=== PATIENT | female | born 1970 | race Caucasian/White ===

== ENCOUNTER 2017-11-30 08:19 | Emergency (ER) | payer BC, OTHER ==
[2017-11-30 09:28] LABS: ABS Basophils 0.1 10^3/ul (0-0.2); ABS Eosinophils 0.1 10^3/ul (0-0.6); ABS Monocytes 0.8 10^3/ul (0-0.8); ABS Neutrophils 10.8 10^3/ul (1.5-7.7); ABS Nucleated RBC 0 10^3/ul; Eosinophil % 0.6 % (0-6); Hematocrit 37 % (35-47); Hemoglobin 12.5 g/dl (12.0-16.0); Lymphocyte % 14.4 % (25-47); Mean Corpuscular HGB Conc 34 g/dl (31-36); Mean Corpuscular Hemoglobin 28 pg (27-31); Mean Corpuscular Volume 84 fL (80-97); Mean Platelet Volume 7.6 um3 (7.4-10.4); Nucleated Red Blood Cells % 0; Platelet Count 225 10^3/ul (150-450); Red Blood Count 4.41 10^6/ul (4.0-5.4); Red Cell Distribution Width 14 % (10.5-15); White Blood Count 13.7 10^3/ul (3.5-10.8)
[2017-11-30 09:45] LABS: INR 0.9 (0.77-1.02)
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
[2017-11-30 09:49] LABS: EGFR Non-African American 89.7 (>60)
[2017-11-30] MEDS ORDERED: Iohexol 300* (CONTRAST) 10 ML SDV IV ONE (10:00)
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
[2017-11-30] MEDS ORDERED: Acetaminophen TAB* 325 MG PO ONE (11:38)
[2017-11-30 12:06] VITALS: BP 148/97
== END 2017-11-30 12:03 | disposition home or self-care (01) ==
LOC: ED 08:19
DX: S20.219A Contusion of unspecified front wall of thorax, initial encounter (principal); S80.01XA Contusion of right knee, initial encounter; R07.9 Chest pain, unspecified; F41.9 Anxiety disorder, unspecified; V43.52XA Car driver injured in collision with other type car in traffic accident, initial encounter; Y92.410 Unspecified street and highway as the place of occurrence of the external cause
CPT/HCPCS: 36415; 71260; 74177; 80053; 83605; 85025; 85610; 86850; 86900; 86901; 93005; 99285; Q9967

== ENCOUNTER 2017-12-09 18:37 | Emergency (ER) | payer OTHER ==
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
[2017-12-09 21:29] VITALS: BP 118/68
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
== END 2017-12-09 21:28 | disposition home or self-care (01) ==
LOC: ED 18:37
DX: S06.0X0A Concussion without loss of consciousness, initial encounter (principal); S20.219A Contusion of unspecified front wall of thorax, initial encounter; V49.40XA Driver injured in collision with unspecified motor vehicles in traffic accident, initial encounter; Y92.410 Unspecified street and highway as the place of occurrence of the external cause; E78.00 Pure hypercholesterolemia, unspecified; Z88.5 Allergy status to narcotic agent
CPT/HCPCS: 70450; 71120; 99282

== ENCOUNTER 2019-04-23 11:36 | Emergency (ER) | payer SELFPAY ==
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
[2019-04-23 14:34] VITALS: BP 124/76
== END 2019-04-23 14:25 | disposition home or self-care (01) ==
LOC: ED 11:36
DX: Z57.39 Occupational exposure to other air contaminants (principal); E78.00 Pure hypercholesterolemia, unspecified; Z88.2 Allergy status to sulfonamides; Z88.5 Allergy status to narcotic agent; Z88.8 Allergy status to other drugs, medicaments and biological substances; Z79.899 Other long term (current) drug therapy; Y99.0 Civilian activity done for income or pay
CPT/HCPCS: 36415; 82375; 99282